=== PATIENT | male | born 1995 | race Caucasian/White ===

== ENCOUNTER → 2023-06-26 10:45 | Outpatient (REF) | payer OTHER, SELFPAY ==
[2023-06-29 10:03] LABS: Quantiferon Mitogen minus NIL 9.04 IU/mL; Quantiferon NIL 0.01 IU/mL; Quantiferon TB Gold Plus Negative (Negative)
== END ==
LOC: OHS 10:45
PROVIDERS: ATTENDING PHYSICIAN Nurse Practitioner Family
DX: Z23 Encounter for immunization (principal)
CPT/HCPCS: 36415; 86480

== ENCOUNTER 2024-04-17 14:34 | Emergency (ER) | payer BC, SELFPAY ==
[2024-04-17 14:35] VITALS: BP 131/96
[2024-04-17] MEDS: ZOFRAN 4 MG IV (16:33)
[2024-04-17] MEDS: DILAUDID 0.5 MG IV ×2 (16:33→19:53)
[2024-04-17] MEDS: DECADRON 10 MG IV (16:34)
[2024-04-17 16:55] LABS: % Basophils 0.8 % (0-2); % Eosinophils 1.9 % (0-6); % Immature Granulocytes 0.1 % (0-0.5); % Lymphocytes 26.3 % (20.5-51.1); % Monocytes 7.2 % (1.7-9.3); % Neutrophils 63.7 % (42.2-75.2); Absolute Basophils 0.1 10^3/uL (0-0.2); Absolute Eosinophils 0.1 10^3/uL (0-0.7); Absolute Lymphocytes 1.9 10^3/uL (1.2-3.4); Absolute Monocytes 0.5 10^3/uL (0.1-0.6); Absolute Neutrophils 4.6 10^3/uL (1.4-6.5); Hematocrit 45.6 % (39.0-52.0); Hemoglobin 15.8 g/dL (13.0-18.0); Mean Corp Hgb Conc. 34.6 g/dL (33.0-37.0); Mean Corpuscular Hgb 30.4 pg (27.0-31.0); Mean Corpuscular Volume 87.9 fL (80.0-94.0); Mean Platelet Volume 9.6 fL (7.4-10.4); Nucleated Red Blood Cells % 0 % (-); Platelet Count 273 10^3/uL (130-400); Red Blood Cell Count 5.19 10^6/uL (4.70-6.10); White Blood Cell Count 7.3 10^3/uL (4.8-10.8)
[2024-04-17 17:10] LABS: ALT (SGPT) 37 U/L (0-50); AST (SGOT) 43 U/L (17-59); Alkaline Phosphatase 47 U/L (38-126); Blood Urea Nitrogen 17 mg/dl (9-20); Carbon Dioxide 28 mmol/L (22-30); Chloride 100 mmol/L (98-107); Glucose 88 mg/dl (70-99); Potassium 4.1 mmol/L (3.5-5.1); Sodium 137 mmol/L (135-145); Total Bilirubin 2.2 mg/dl (0.2-1.3); Total Protein 7.3 g/dl (6.3-8.2); eGFR > 60.00
[2024-04-17 17:13] LABS: Erythrocyte Sed Rate 2 mm/hour (0-20)
[2024-04-17 17:14] LABS: C-Reactive Protein < 5.00 mg/L (0.0-10.00)
--- NOTE | 2024-04-17 20:14 | ED.GENMED ---
History of Present Illness
General
Chief Complaint: Back Pain
Source: patient
Exam Limitations: none
Time Seen by Provider: 04/17/24 15:23
Nursing documentation reviewed up to this point in time: agreed with
History of Present Illness
History of Present Illness:
Patient to ED with complaint of severe low back pain numbness to BLE. States he has had LLE numbness since February. Has been treating with physical therapy without improvement. Yesterday he noted numbness to RLE, today had an episode of urinary
incontinence. Brought to ED by spouse for eval. Denies any history of trauma. Denies fever/chills, recent illness.
Past History
Past History
ED Past Medical History: None
ED Past Surgical History: None
Review of Systems
Review of Systems
Allergies reviewed?: Yes
All Other Systems: ROS reviewed and negative except as documented in HPI and ROS
Constitutional: Reports no symptoms
EENT: Reports no symptoms
Respiratory: Reports no symptoms
Cardiac: Reports no symptoms
ABD/GI: Reports no symptoms
: Reports incontinence (episode of urinary incontinence today.)
Skin: Reports no symptoms
Neurological: Reports other (Numbness BLE)
Psychiatric: Reports no symptoms
Phy Exam
General Physical Exam
General Presentation: well appearing and no apparent distress
General age: appears stated age
General Skin: warm and dry
General Habitus: normal
Cardiovascular Exam
Cardiovascular Exam: regular rate/rhythm and no edema
Gastrointestinal Exam
Gastrointestinal Exam: normal bowel sounds, non tender, soft and no organomegaly
Neurological Exam
Neurological Exam: alert, oriented x3, CN II-XII intact, no motor deficits, no sensory deficits, speech normal and normal gait
Motor
Seizure Activity: none
Gait: normal
Tremors: none
Right upper extremity: 4
Right lower extremity: 4
Left upper extremity: 4
Left lower extremity: 4
Bilateral upper extremities: 4
Bilateral lower extremities: 4
Sensory
Sensory Exam: dull and intact
Reflexes
Reflexes: +1: Right patellar and +3: Left patellar
Musculoskeletal Exam
Musculoskeletal Exam: full ROM, back pain (left low back pain) and neuro vasc intact
Skin Exam
Skin Exam: normal color, warm/dry and no rash
Psychiatric Exam
Psychiatric Exam: normal mood/affect
Course
Orders/Labs/Results
Orders:
Orders
04/17/24 15:48
Dexamethasone Sod Phosphate [Decadron] 10 mg IV NOW STA
HYDROmorphone [Dilaudid] 0.5 mg IV NOW STA
Ondansetron Injectable [Zofran] 4 mg IV NOW STA
04/17/24 15:57
Lumbar Without Contrast MR [MR Lumbar Without Contrast] Urgent
Comment:
Reason For Exam: BLE numbness, urine incontinence, low back pain
OK for patient to be off Cardiac Monitoring for MRI: Yes
Recent pill cam endoscopy?: No
04/17/24 16:35
CRP [C-Reactive Protein] Urgent
Complete Blood Count/With Diff Urgent
Comprehensive Metabolic Panel Urgent
Sed Rate [Erythrocyte Sed Rate] Urgent
04/17/24 17:20
CR Orbits - Pre Mri Stat
Comment:
Reason For Exam: hx of metallic fb removal from eye
04/17/24 19:43
HYDROmorphone [Dilaudid] 0.5 mg .ROUTE .STK-MED ONE
04/17/24 19:53
HYDROmorphone [Dilaudid] 0.5 mg IV NOW STA
Abnormal Lab Results
04/17/24
16:35
Total Bilirubin 2.2 H mg/dl
(0.2-1.3)
04/17/24 16:35
04/17/24 16:35
Vital Signs
Initial and Last Documented VS:
Initial Vital Signs
Temp Pulse Resp BP Pulse Ox
98.4 F 104 16 131/96 100
04/17/24 14:35 04/17/24 14:35 04/17/24 14:35 04/17/24 14:35 04/17/24 14:35
Last Documented Vital Signs
Temp Pulse Resp BP Pulse Ox
98.4 F 105 18 148/75 99
04/17/24 14:35 04/17/24 20:31 04/17/24 20:31 04/17/24 20:31 04/17/24 20:31
*Radiology
Radiology exam reviewed: radiology read reviewed
*Pulse Oximetry
Patient hypoxic: no
*Critical Care Note
Total Time (30-74mins, 75-104mins- exclusive of procedures): Not Applicable
Update Note
Update Note:
Patient to ED iwth complaint of BLE numbness, urinary incontinence x 1 today. MRI completed in ED, reveals Large left central disc extrusion at L5S1 causing severe impingement on the traversing left S1 nerve root. Dr. Santiago consulted, recommends
transfer to [place]. Discussed MRI findings and neurosurgery recommendation with patient and spouse. Patient requests transfer to [place]. I spoke with Dr. Lerner, [facility], reviewed MRI findings. SHe feels that patient can be safely
discharged home tonight as he is able to ambulate without difficulty, no extremity weakness, no evidence of urinary retention (bladder scan with 0 residual urine), and will be seen at [place] in AM. Patient and spouse are agreeable to plan. COntact
information shared with [place]. He was ginve instructions on s/s to return to ED and he is agreeable to plan.
ED Attending Note
-
Portions of this chart may have been created with voice recognition software.� Occasional wrong word or��sound alike� substitutions may have occurred due to the inherent limitations of voice recognition software.
Discharge Plan
Departure
Patient Disposition: Home (Routine Discharge)
Date of Disposition: 04/17/24
Time of Disposition: 20:52
Patient with high blood pressure during this ER visit?: No
Condition: Fair
Covid-19: Not Applicable
Discharge Problem:
Low back pain, Extrusion of intervertebral disc
Instructions: Herniated Disc (DC)
Prescriptions:
New
prednisone 10 mg Tablet
See Rx Instructions .ROUTE .COMPLEX Qty: 30 0RF
Rx Instructions:
Take By Mouth:
40 mg daily x3 days, 30 mg daily x3 days,
20 mg daily x3 days, 10 mg daily x3 days.
Referrals:
Corina Gonsalves DO [Family Provider] -
Activity Restrictions/Additional Instructions:
You will need to be seen by Neurosurgery tomorrow. Neurosurgery dept at [facility] will contact you in the AM with your appointment time. Return to the emergency departement immediately for any changes in/worsening of your symptoms, especially weakness
in your legs, inability to pass urine.
Interventions
Interventions:
*Risk Screen - Suicide Last Done: 04/17/24 17:03
*Neglect/Abuse Screening Last Done: 04/17/24 17:03
*Nursing Disposition Last Done: 04/17/24 21:21
ED-Musculoskeletal Assessment Last Done: 04/17/24 17:03
Discharge Date and Time
Discharge Date/Time: 04/17/24 21:23
Print Language: [place]
[2024-04-17 20:31] VITALS: BP 148/75
== END 2024-04-17 21:23 | disposition home or self-care (01) ==
LOC: EMR 14:34
PROVIDERS: Nurse Practitioner; EMERGENCY PHYSICIAN Emergency Medicine; FAMILY PHYSICIAN Family Medicine
DX: R20.2 Paresthesia of skin (principal); M54.50 Low back pain, unspecified; M51.27 Other intervertebral disc displacement, lumbosacral region; R32 Unspecified urinary incontinence
CPT/HCPCS: 99284; 96374; 96375 ×2; 96376; 70030; 72148; 80053; 85025; 85652; 86140

== ENCOUNTER 2024-12-02 23:23 | Emergency (ER) | payer BC, SELFPAY ==
[2024-12-02 23:27] VITALS: BP 125/89
[2024-12-02 23:30] VITALS: BP 125/89
[2024-12-02 23:39] VITALS: BMI 22.6
[2024-12-02] MEDS: BENADRYL 25 MG IV (23:47)
[2024-12-02] MEDS: COMPAZINE 10 MG IV (23:47)
[2024-12-02] MEDS: NSS 1000 IV (23:48)
[2024-12-02] MEDS: TORADOL 15 MG IV (23:48)
--- NOTE | 2024-12-03 00:35 | ED.GENMED ---
History of Present Illness
General
Chief Complaint: Headache
Source: patient and previous hospital records (ED visit April 2024 for acute low back pain with radicular findings and incontinence. Lumbar MRI showed herniated disc L5-S1. Followed up with neurosurgery, treated conservatively with oral steroids
with relief.)
Exam Limitations: none
Time Seen by Provider: 12/02/24 23:27
Nursing documentation reviewed up to this point in time: agreed with
History of Present Illness
History of Present Illness:
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
accompanied by nausea and intermittent vomiting. He reports a remote history of migraine headaches for which he was evaluated previously by his primary care physician. At one point, he was prescribed Ubrelvy, although its effectiveness was
questionable. The patient mentions experiencing similar headaches in the past, noting that the intensity had been more severe in his childhood. There is no history of fever. The patient denies previous imaging for headaches, such as CT scan, and has
primarily managed symptoms through his family doctor. Additionally, the patient has a family history of migraines, as his father also experienced them. He reports no history of alcohol nor tobacco use. No recent URI. He does admit to mild
photophobia but no vision difficulty. No dizziness nor lightheadedness.
His only daily medication is Vyvanse.
He states he had previous ED visit for migraine headache and received IV medications with relief. Upon review of records, no previous ED visit at [facility] for headache. He was evaluated in this ED April 2024 with acute low back pain
with bilateral radicular pain and an episode of urinary incontinence. Urgent MRI revealed large left central disc extrusion at L5-S1 causing severe impingement on the left S1 nerve root. Discharged to home with follow-up with neurosurgery at [place],
treated conservatively with oral steroids with complete resolution. He has had no recurrence of low back pain.
Past History
Past History
ED Past Medical History: Psychiatric (ADD) and Other (Migraine headaches, lumbar disc disease)
ED Past Surgical History: Appendectomy
Social History
Tobacco: Non-smoker
Alcohol: None
Drug: None
Personal:
Living: with family
Employment: Employed (RN, ICU at [employer])
Family History
Family History: Other (Father with history of migraine headaches)
Phy Exam
Physical Exam
Physical Exam:
GENERAL: 29-year-old male appears his stated age, awake and alert, appears mildly uncomfortable but easily communicative.
EYE: pupils equal and reactive. Extraocular muscles intact. Discs are sharp bilaterally. Anicteric
NECK: Supple, no midline bony tenderness, no meningismus, no significant adenopathy. Mild tenderness right paracervical musculature as well as mild tenderness right superior trapezius musculature.
ENT: posterior pharynx is clear, oral mucosa is moist. TM clear b/l, nares patent.
CARDIAC: Regular rate and rhythm. no murmur.
LUNGS: Clear breath sounds bilaterally, no acute respiratory distress, no wheezes/rales/rhonchi
ABDOMEN: Soft, nondistended, without focal tenderness, normoactive BS.
NEUROLOGICAL: Alert and oriented x3, no focal neuro deficits. Gait is hernandez and steady.
SKIN: Warm and dry, normal color, skin intact. No rash.
MUSCULOSKELETAL: No C/C/E. peripheral pulses are full and equal b/l. No palpable tenderness.
PSYCH: Normal and appropriate interaction.
Course
Orders/Labs/Results
Orders:
Orders
12/02/24 23:28
0.9% Sodium Chloride 1000 ml [Nss] 1,000 ml IV BOLUS
Diphenhydramine [Benadryl] 25 mg IV NOW STA
Ketorolac [Toradol] 15 mg IV NOW STA
Prochlorperazine [Compazine] 10 mg IV NOW STA
12/03/24 00:00
CT Head W/o Iv Contrast Urgent
Reason For Exam: severe R sided h/a x 3 days, N/V
12/03/24 01:32
Dexamethasone Sod Phosphate [Decadron] 20 mg .ROUTE .STK-MED ONE
12/03/24 01:34
Dexamethasone Sod Phosphate [Decadron] 10 mg IV NOW STA
Vital Signs
Initial and Last Documented VS:
Initial Vital Signs
Temp Pulse Resp BP Pulse Ox
98.1 F 88 14 125/89 100
12/02/24 23:27 12/02/24 23:27 12/02/24 23:27 12/02/24 23:27 12/02/24 23:27
Last Documented Vital Signs
Temp Pulse Resp BP Pulse Ox
98.1 F 94 14 125/89 100
12/02/24 23:27 12/02/24 23:27 12/02/24 23:27 12/02/24 23:30 12/03/24 00:44
MDM/Problems Addressed
Differential Diagnosis Includes:
The Differential Diagnosis includes, in no particular order and is not limited to:
1. Migraine headache
2. Tension headache
3. Cervicogenic headache
4. Cluster headache
5. Sinus headache
6. Medication overuse headache
7. Temporomandibular joint disorder
8. Occipital neuralgia
9. Intracranial hypertension
10. Viral meningitis
MDM/Problems Addressed:
Acute right-sided headache, ongoing for 3 days accompanied with nausea and vomiting. Nothing in history nor exam to suggest infectious process/meningitis.
No focal neurodeficits.
History is most suggestive of migraine headache but due to severity and persistence along with no previous neuroimaging, will check CT of the head.
Will medicate with IV fluids, IV Compazine, Toradol and Benadryl.
At this point no indication for laboratory studies.
Chronic conditions affecting care:
History of similar headaches in the past, more so as a child.
*Radiology
Radiology exam reviewed: radiology read reviewed (CT of the head is unremarkable)
*Pulse Oximetry
SaO2: 100
Oxygen Mode of Delivery: Room air
Patient hypoxic: no
*Critical Care Note
Total Time (30-74mins, 75-104mins- exclusive of procedures): Not Applicable
Update Note
Update Note:
After IV fluids, Compazine, Toradol, Benadryl patient is resting nicely and reports complete relief of headache. No further nausea.
CT of the head is unremarkable.
Will give an IV dose of Decadron to hopefully vargas off rebound headache phenomenon.
Discussed importance of staying well-hydrated on a daily basis.
Will discharge to home with recommendation for prompt follow-up with his PCP.
Return precautions discussed.
ED Attending Note
-
Portions of this chart may have been created with voice recognition software.� Occasional wrong word or��sound alike� substitutions may have occurred due to the inherent limitations of voice recognition software.
Discharge Plan
Departure
Patient Disposition: Home (Routine Discharge)
Date of Disposition: 12/03/24
Time of Disposition: 01:47
Patient with high blood pressure during this ER visit?: No
Condition: Good
Discharge Problem:
ACUTE MIGRAINE HEADACHE
Instructions: Migraines (DC)
Prescriptions:
No Action
prednisone 10 mg Tablet
See Rx Instructions .ROUTE .COMPLEX Qty: 30 0RF
Rx Instructions:
Take By Mouth:
40 mg daily x3 days, 30 mg daily x3 days,
20 mg daily x3 days, 10 mg daily x3 days.
Referrals:
Corina Gonsalves DO [Family Provider, Family Practice] - Call in 1-3 days for appt
Interventions
Interventions:
*Risk Screen - Suicide Last Done: 12/02/24 23:27
*General Assessment Last Done: 12/02/24 23:27
*Neglect/Abuse Screening Last Done: 12/02/24 23:27
*ED- Fall Risk Assessment Last Done: 12/02/24 23:39
*ED COVID-19 Vaccine History Last Done: 12/02/24 23:39
*ED Influenza Vaccine History Last Done: 12/02/24 23:39
ED- Neurological Assessment Last Done: 12/02/24 23:39
Discharge Date and Time
Print Language: DIVEHI
[2024-12-03] MEDS: DECADRON 10 MG IV (01:34)
== END 2024-12-03 01:58 | disposition home or self-care (01) ==
LOC: EMR 23:23
PROVIDERS: EMERGENCY PHYSICIAN Emergency Medicine; FAMILY PHYSICIAN Family Medicine
DX: G43.909 Migraine, unspecified, not intractable, without status migrainosus (principal); F98.8 Other specified behavioral and emotional disorders with onset usually occurring in childhood and adolescence; M51.17 Intervertebral disc disorders with radiculopathy, lumbosacral region; M51.26 Other intervertebral disc displacement, lumbar region; Z79.899 Other long term (current) drug therapy; Z90.49 Acquired absence of other specified parts of digestive tract
CPT/HCPCS: 99284; 96374; 96375; 70450